=== PATIENT | male | born 1995 | race Caucasian/White ===

== ENCOUNTER 2018-01-02 04:00 | Emergency (ER) | payer BC, MEDICAID ==
[2018-01-02] MEDS ORDERED: Take Home: Amoxicillin/Clavulanate K 875-125 MG Tab, 2 Tab Pack PO ONE (05:26)
[2018-01-02] MEDS ORDERED: Acetaminophen/Codeine 300-30 MG Tab PO PRN (05:27)
[2018-01-02] MEDS ORDERED: Diphtheria,Pertussis(Acell),Tetanus Vaccine 0.5 ML Syringe IM ONE (05:29)
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
== END 2018-01-02 05:52 | disposition home or self-care (01) ==
LOC: VM.ED 04:00
DX: S02.2XXA Fracture of nasal bones, initial encounter for closed fracture (principal); S00.511A Abrasion of lip, initial encounter; Y04.8XXA Assault by other bodily force, initial encounter; Z23 Encounter for immunization
CPT/HCPCS: 70450; 70486; 72125; 90471; 90715; 99284; A9270; 99283-GF

== ENCOUNTER 2019-01-30 04:21 | Emergency (ER) | payer SELFPAY ==
[2019-01-30] MEDS ORDERED: Aspirin 81 MG Tab.Chew PO ONE (04:58)
[2019-01-30] MEDS ORDERED: GI Cocktail Oral Solution 30 ML PO ONE (04:58)
[2019-01-30] MEDS ORDERED: LORazepam 2 MG/ML SDV IVPUSH ONE (05:08)
[2019-01-30 05:34] LABS: ANION GAP 14.2 mmol/L (10-20); CHLORIDE,CL 101 mmol/L (98-107); SODIUM,NA 140 mmol/L (136-145)
[2019-01-30] MEDS ORDERED: Potassium Chloride 20 MEQ Tab.ER PO ONE (05:36)
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
[2019-01-30 05:49] LABS: BARBITURATE SCREEN,URINE NEGATIVE (NEGATIVE); BENZODIAZEPINES SCREEN,URINE NEGATIVE (NEGATIVE); EDDP,URINE SCREEN NEGATIVE (NEGATIVE); METHAMPHETAMINE SCREEN, URINE NEGATIVE (NEGATIVE); TCA SCREEN,URINE NEGATIVE (NEGATIVE); THC SCREEN,URINE 50 NG/ML NEGATIVE (NEGATIVE)
== END 2019-01-30 06:10 | disposition home or self-care (01) ==
LOC: VM.ED 04:21
DX: F41.9 Anxiety disorder, unspecified (principal)
CPT/HCPCS: 36415; 80053; 80305; 81001; 84484; 85025; 85610; 93005; 93010; 96374; 99283; 99285; A9270; J2060